=== PATIENT | female | born 1945 | race Caucasian/White ===

== ENCOUNTER 2016-07-30 05:15 | Observation (INO) | payer MEDICARE, OTHER ==
[~2016-07-30] VITALS: Ht 167.6 cm; Wt 89.1 kg
[~2016-07-30 05:15] MED LIST: FentaNYL CITRATE-PF 250 MCG/5 ML VIAL IVP ONE; KETOROLAC TROMETHAMINE 60 MG/2 ML VIAL IM ONE; LIDOCAINE HCL/PF 2% 5 ML VIAL IM ONE; MIDAZOLAM HCL 2 MG/2 ML VIAL IVP ONE; MORPHINE SULFATE/PF 0.5 MG/ML 10 ML AMP IVP ONE; PROPOFOL 1% 20 ML VIAL IVP ONE; SUCCINYLCHOLINE CHLORIDE 20 MG/ML 10 ML VIAL IVP ONE
[2016-07-30] MEDS ORDERED: RINGERS SOLUTION,LACTATED 1,000 ML IV ONE ×3 (05:42→08:34)
[2016-07-30] MEDS ORDERED: CeFAZolin 2 GM/DEXTROSE 50 ML IV ONE ×2 (05:42→06:00)
[2016-07-30 06:10] LABS: BASOPHILS # (AUTO) 0.03 K/uL (0.00-0.20); BASOPHILS % (AUTO) 0.4 % (0.0-2.0); EOSINOPHILS # (AUTO) 0.31 K/uL (0.00-0.70); EOSINOPHILS % (AUTO) 4.25 % (1.0-6.0); HEMATOCRIT 39.6 % (36-46); HEMOGLOBIN 13.1 g/dL (12.0-16.0); LYMPHOCYTES # (AUTO) 2.5 K/uL (1.0-4.8); MEAN CORPUSCULAR VOLUME 85 fL (80-100); MONOCYTES # (AUTO) 0.7 K/uL (0.1-1.0); MONOCYTES % (AUTO) 9.5 % (2.0-9.0); NEUTROPHILS # (AUTO) 3.8 K/uL (1.8-7.7); NEUTROPHILS % (AUTO) 51.8 % (40.0-70.0); PLATELET COUNT (AUTO) 194 K/uL (150-450); RED BLOOD CELL COUNT(AUTO) 4.66 MIL/uL (4.00-5.20); WHITE BLOOD COUNT (AUTO) 7.3 K/uL (4.5-11.0)
[2016-07-30 06:18] LABS: ANION GAP 8 mmol/L (8-16); CALCIUM, TOTAL 8.9 mg/dL (8.8-10.5); CARBON DIOXIDE 27 mmol/L (22-29); CHLORIDE 106 mmol/L (98-107); CREATININE 0.71 mg/dL (0.60-1.30); GLOMERULAR FILTR. RATE CALC > 60 mL/min (>60); SODIUM SERUM 141 mmol/L (136-145); UREA NITROGEN, BLOOD 17 mg/dL (7-18)
[2016-07-30 06:24] LABS: ALANINE AMINOTRANSFERASE 27 U/L (12-78); ALBUMIN 3.6 g/dL (3.4-5.0); ASPARTATE AMINOTRANSFERASE 21 U/L (15-37); BILIRUBIN,TOTAL 0.7 mg/dL (0.1-1.0); TOTAL PROTEIN, SERUM 6.5 g/dL (6.4-8.2)
[2016-07-30 06:26] LABS: PROTHROMBIN TIME 10.9 SEC (9.4-11.6)
[2016-07-30] MEDS ORDERED: PREG150C PO (06:30)
[2016-07-30] MEDS ORDERED: MONT10TA21 PO (06:30)
[2016-07-30] MEDS ORDERED: ALBU8HFA IH ×2 (06:30)
[2016-07-30] MEDS ORDERED: ATOR80TA PO (06:30)
[2016-07-30] MEDS ORDERED: OMEP20 PO (06:30)
[2016-07-30] MEDS ORDERED: MESA1.2T2 PO (06:30)
[2016-07-30] MEDS ORDERED: LOPE2 PO (06:30)
[2016-07-30] MEDS ORDERED: CITA20TA17 PO (06:30)
[2016-07-30] MEDS ORDERED: ADV250 IH (06:30)
[2016-07-30] MEDS ORDERED: ASPI-1093 PO (06:30)
[2016-07-30] MEDS ORDERED: BUPIVACAINE HCL/PF 0.5% 30 ML VIAL ONE (06:46)
[2016-07-30] MEDS ORDERED: VANCOMYCIN HCL 1 GM/VIAL ONE (06:46)
[2016-07-30] MEDS ORDERED: BUPIVACAINE 0.25%/EPI 1:200,000/PF 10 ML VIAL ONE (06:46)
[2016-07-30] MEDS ORDERED: GUM MASTIC/STORAX/MSAL/ALCOHOL LIQUID 0.67 ML VIAL TP ONE (06:46)
[2016-07-30] MEDS ORDERED: ACETAMINOPHEN 1000 MG/ISO-OSM 100 ML IV ONE (06:50)
[2016-07-30] MEDS ORDERED: ONDANSETRON HCL 4 MG/2 ML VIAL IVP PRN ×2 (08:00→10:45)
[2016-07-30] MEDS ORDERED: CYCLOBENZAPRINE HCL 10 MG TABLET PO PRN (08:00)
[2016-07-30] MEDS ORDERED: ZOLPIDEM TARTRATE 5 MG TABLET PO PRN (08:00)
[2016-07-30] MEDS ORDERED: PROMETHAZINE HCL 25 MG/ML VIAL IM PRN (08:00)
[2016-07-30] MEDS ORDERED: DOCUSATE SODIUM 100 MG CAPSULE PO SCH (09:00)
[2016-07-30] MEDS ORDERED: ZOLPIDEM TARTRATE 10 MG TABLET PO PRN (09:00)
[2016-07-30] MEDS ORDERED: DEXAMETHASONE SOD PHOS 4 MG/ML VIAL IVP PRN (09:00)
[2016-07-30] MEDS ORDERED: BENZOCAINE/MENTHOL LOZENGE [8 LOZENGES/PACKET] PO PRN (09:00)
[2016-07-30 09:30] VITALS: BP 131/64
[2016-07-30] MEDS: HYDROmorphone 2 MG/ML SYRINGE IVP PRN ×3 (10:35→21:37)
[2016-07-30] MEDS ORDERED: ACETAMINOPHEN 325 MG TABLET PO PRN (10:45)
[2016-07-30] MEDS ORDERED: MAGNESIUM HYDROXIDE SUSPENSION 30 ML UDCUP PO PRN (10:45)
[2016-07-30] MEDS: DiphenhydrAMINE HCL 50 MG/ML VIAL IVP PRN ×2 (11:26→21:36)
[2016-07-30] MEDS: ACETAMINOPHEN 1000 MG/ISO-OSM 100 ML IV SCH ×2 (13:02→19:09)
[2016-07-30] MEDS: PANTOPRAZOLE SODIUM 40 MG DR TABLET PO SCH (13:02)
[2016-07-30 13:13] VITALS: BP 132/66
[2016-07-30 15:30] VITALS: BP 105/48
[2016-07-30 20:30] VITALS: BP 119/50
[2016-07-30] MEDS: DOCUSATE SODIUM 100 MG CAPSULE PO SCH (21:02)
[2016-07-31 00:07] VITALS: BP 129/58
[2016-07-31] MEDS: ACETAMINOPHEN 1000 MG/ISO-OSM 100 ML IV SCH (01:19)
[2016-07-31 04:43] VITALS: BP 122/69
[2016-07-31] MEDS ORDERED: OxyCODONE HCL/ACETAMINOPHEN 10-325 MG TABLET PO PRN (07:00)
[2016-07-31 07:45] VITALS: BP 129/78
[2016-07-31] MEDS: PANTOPRAZOLE SODIUM 40 MG DR TABLET PO SCH (08:58)
[2016-07-31] MEDS: DOCUSATE SODIUM 100 MG CAPSULE PO SCH (08:59)
== END 2016-07-31 11:32 | disposition home or self-care (01) ==
LOC: 4E 05:15
PROVIDERS: ADMIT Orthopaedic Surgery Orthopaedic Surgery of the Spine; ATTEND Orthopaedic Surgery Orthopaedic Surgery of the Spine
DX: M48.06 Spinal stenosis, lumbar region (principal); M54.5 Low back pain; K51.90 Ulcerative colitis, unspecified, without complications; E66.9 Obesity, unspecified
CPT/HCPCS: 36415; 63047; 80053; 85025; 85610; 85730; 87081; 93005; 96374; 96375; 96376 ×2; 97161; 97165; G0238; G0378 ×2; G8978; G8979; G8980; G8987; G8988; G8989; J0131 ×2; J0330; J0690; J1170; J1200; J1885; J2250; J2274; J2405; J2704; J3010; J3370; J3490 ×3; J7120